=== PATIENT | male | born 1975 | race African-American/Black ===

== ENCOUNTER 2025-04-18 00:37 | Inpatient (IN) | payer MEDICAID ==
[2025-04-18] VITALS (39 sets, daily range): BP systolic 57–191; BP diastolic 35–179; PULSE 82–118; RESP 0–30; TEMP 36.1–37; O2SAT 100
[~2025-04-18] VITALS: Ht 165.1 cm; Wt 120.3 kg
[2025-04-18] MEDS: OLANZAPINE 10 MG/VIAL IM ONE (02:05)
[2025-04-18] MEDS ORDERED: ACETAMINOPHEN 650MG/20.3ML UDC GT PRN (11:45)
[2025-04-18] MEDS ORDERED: IPRATROPIUM/ALBUTEROL 0.5-3(2.5)MG/3ML NEB HHN PRN (11:45)
[2025-04-18] MEDS: NOREPINEPHRINE 8MG/250ML PMX 250 ML IV PRN (14:03)
[2025-04-18] MEDS: ALBUMIN HUMAN 25GM/100ML (25%) IV NR (14:04)
[2025-04-18] MEDS: SODIUM CHLORIDE 0.9% 250 ML IV ONE (14:15)
[2025-04-18] MEDS: SODIUM CHLORIDE 0.9% 500 ML IV ONE (14:15)
[2025-04-18 14:19] LABS: BG BASE EXCESS -7.4 mmol/L (-2.0-3.0); BG CARBOXYHEMOGLOBIN 0.1 % (0.5-1.5); BG DEOXYHEMOGLOBIN 0.6 % (0.0-5.0); BG FLOW(L/min) 5.00 L/min; BG FRACTION INSPIRED OXYGEN 40; BG HCO3 ACT 15.9 mmol/L (21.0-28.0); BG METHEMOGLOBIN 0.3 % (0.5-1.5); BG OXYGEN SATURATION 99.4 % (94.0-98.0); BG OXYHEMOGLOBIN 99.0 % (94.0-98.0); BG PCO2 25.2 mmHg (35.0-48.0); BG PH 7.417 (7.350-7.450); BG PO2 177.0 mmHg (83.0-108.0); BG SAMPLE SITE LEFT RADIAL; BG TOTAL HEMOGLOBIN 9.4 g/dL (13.5-17.5); BG VENT MODE NASAL CANNULA
[2025-04-18] MEDS: MIDODRINE HCL 5MG TABLET PO SCH (14:22)
[2025-04-18] MEDS: DEXTROSE 50% WATER 50ML SYRINGE IV NR (14:53)
[2025-04-18] MEDS: INSULIN REGULAR (HUMULIN R) 1000UNITS/10ML VIAL IV NR (14:57)
[2025-04-18] MEDS ORDERED: DEXTROSE 50% WATER 50ML SYRINGE IV PRN (17:45)
[2025-04-18 18:10] LABS: TROPONIN I HIGH SENSITIVITY 47 ng/L (3.0-53)
[2025-04-18 18:21] LABS: PHOSPHORUS 9.7 mg/dL (2.5-4.9)
[2025-04-18 18:45] LABS: HEPATITIS A AB IGM NEGATIVE (Negative)
[2025-04-18] MEDS: ALTEPLASE 2MG/VIAL ITC SCH (18:45)
[2025-04-18 18:46] LABS: HEPATITIS B CORE AB IGM NEGATIVE (Negative)
[2025-04-18 18:47] LABS: HEPATITIS C AB NON REACTIVE (Neg) (Negative)
[2025-04-18] MEDS: MAGNESIUM 2 G PREMIX 50 ML IV NR (19:13)
[2025-04-18] MEDS: INSULIN LISPRO 100 UNITS/ML SUBCUT SCH (21:00)
[2025-04-18] MEDS: BLOOD SUGAR DIAGNOSTIC STRIP TEST SCH (21:00)
[2025-04-18] MEDS: VANCOMYCIN 2GM PMX (XELLIA) 400 ML IV SCH (21:09)
[2025-04-18] MEDS ORDERED: MORPHINE SULFATE 2 MG/ML INJ (NOT FOR IM USE) IV PRN (21:30)
[2025-04-18] MEDS ORDERED: HYDRALAZINE 20MG/ML VIAL IV PRN (21:45)
[2025-04-18] MEDS ORDERED: NALOXONE HCL 0.4MG/ML VIAL IV PRN (21:45)
[2025-04-18 22:09] LABS: PLATELET 153 x1000/uL (130-400); RED BLOOD CELL COUNT 3.36 mill/uL (4.7-6.1); RED CELL DISTRIBUTION WIDTH 19.9 % (11.6-14.6)
[2025-04-18] MEDS: PIPERACILLIN/TAZO 3.375G/50ML 50 ML IV SCH (22:21)
[2025-04-18 23:32] LABS: UREA NITROGEN BLOOD 85.0 mg/dL (9-23)
[2025-04-18 23:35] LABS: CREATININE 13.7 mg/dL (0.6-1.3)
[2025-04-19] VITALS (107 sets, daily range): BP systolic 53–152; BP diastolic 36–132; PULSE 64–106; RESP 0–26; TEMP 36.114–36.9; O2SAT 95–100
[2025-04-19] MEDS: NOREPINEPHRINE 32 MG in DEXT 5% WATER 218 ML IV PRN (04:48)
[2025-04-19] MEDS: PANTOPRAZOLE SODIUM 40 MG/VIAL IV SCH (08:35)
[2025-04-19] MEDS: PIPERACILLIN/TAZO 3.375G/50ML 50 ML IV SCH (08:36)
[2025-04-19] MEDS: ALTEPLASE 2MG/VIAL ITC NR ×2 (14:31)
[2025-04-19] MEDS: MENTHOL/LANOLIN/CALAMINE/ZN OX OINT 71GM TOP SCH (14:57)
[2025-04-19] MEDS: NYSTATIN POWDER 15GM TOP SCH (14:58)
[2025-04-19 16:13] LABS: HEMATOCRIT. 23.1 % (42.0-52.0); HEMOGLOBIN. 7.1 g/dL (14.0-18.0); MEAN PLATELET VOLUME 8.4 fl (7.4-10.4); PLATELET 86 x1000/uL (130-400); RED BLOOD CELL COUNT 2.72 mill/uL (4.7-6.1); RED CELL DISTRIBUTION WIDTH 19.9 % (11.6-14.6)
[2025-04-19 16:22] LABS: UREA NITROGEN BLOOD 69.0 mg/dL (9-23)
[2025-04-19 16:26] LABS: T4 FREE 0.61 ng/dL (0.89-1.76)
[2025-04-19 16:28] LABS: CREATININE 10.7 mg/dL (0.6-1.3)
[2025-04-19 16:55] LABS: LYMPHOCYTES % MANUAL 9.0 % (20.0-50.0); MONOCYTES % MANUAL 16.0 % (2.0-8.0); NEUTROPHILS % MANUAL 75.0 % (45.0-75.0); NUCLEATED RED BLOOD CELLS 2 /100 WBC; PLATELET ESTIMATE DECREASED
[2025-04-19] MEDS: EPOETIN ALFA-EPBX 4,000 UNITS/ML VIAL SUBCUT SCH (21:13)
[2025-04-20] VITALS (98 sets, daily range): BP systolic 62–143; BP diastolic 35–107; PULSE 69–101; RESP 11–33; TEMP 36.6–36.9; O2SAT 99–100
[2025-04-20 10:42] LABS: MEAN PLATELET VOLUME 8.5 fl (7.4-10.4); PLATELET 75 x1000/uL (130-400); RED BLOOD CELL COUNT 2.65 mill/uL (4.7-6.1); RED CELL DISTRIBUTION WIDTH 20.6 % (11.6-14.6)
[2025-04-20 10:57] LABS: HEMATOCRIT. 22.9 % (42.0-52.0); HEMOGLOBIN. 6.9 g/dL (14.0-18.0)
[2025-04-20 11:01] LABS: UREA NITROGEN BLOOD 75 mg/dL (9-23)
[2025-04-20 11:03] LABS: ASPARTATE AMINOTRANSFERASE 9 IU/L (<34); BILIRUBIN TOTAL 0.2 mg/dL (0.1-1.0); PROTEIN TOTAL 4.7 g/dL (6.0-8.3)
[2025-04-20 11:54] LABS: CREATININE 10.8 mg/dL (0.6-1.3)
[2025-04-20 11:55] LABS: PHOSPHORUS 8.5 mg/dL (2.5-4.9)
[2025-04-20 11:59] LABS: BAND% 8.0 % (1.0-6.0); EOSINOPHILS % MANUAL 1.0 % (0.0-5.0); LYMPHOCYTES % MANUAL 5.0 % (20.0-50.0); MONOCYTES % MANUAL 12.0 % (2.0-8.0); NEUTROPHILS % MANUAL 74.0 % (45.0-75.0)
[2025-04-20 12:00] LABS: PLATELET ESTIMATE DECREASED
[2025-04-20] MEDS: SEVELAMER CARBONATE 800 MG TABLET PO SCH (16:50)
[2025-04-21] VITALS (84 sets, daily range): BP systolic 55–160; BP diastolic 30–99; PULSE 60–146; RESP 13–34; TEMP 36.1–37.2; O2SAT 97–100
[2025-04-21] MEDS: MIDODRINE HCL 5MG TABLET PO SCH (03:30)
[2025-04-21] MEDS: ALBUMIN HUMAN 25GM/100ML (25%) IV NR (04:15)
[2025-04-21] MEDS: VASOPRESSIN 20 UNIT in SODIUM CHLORIDE 0.9% 99 ML IV PRN (04:42)
[2025-04-21] MEDS ORDERED: MIDODRINE HCL 5MG TABLET PO SCH (05:00)
[2025-04-21] MEDS: EPINEPHRINE 10 MG in SODIUM CHLORIDE 0.9% 240 ML IV PRN (06:07)
[2025-04-21] MEDS: SODIUM BICARBONATE 650MG TABLET PO SCH (08:41)
[2025-04-21] MEDS: ONDANSETRON HCL 4MG/2ML INJ IV PRN (09:47)
[2025-04-21 10:35] LABS: HEMATOCRIT. 24.0 % (42.0-52.0); HEMOGLOBIN. 7.1 g/dL (14.0-18.0); MEAN PLATELET VOLUME 9.2 fl (7.4-10.4); PLATELET 91 x1000/uL (130-400); RED BLOOD CELL COUNT 2.73 mill/uL (4.7-6.1); RED CELL DISTRIBUTION WIDTH 21.3 % (11.6-14.6)
[2025-04-21 10:55] LABS: UREA NITROGEN BLOOD 70.0 mg/dL (9-23)
[2025-04-21 10:59] LABS: CREATININE 10.2 mg/dL (0.6-1.3)
[2025-04-21 14:39] LABS: BAND% 21.0 % (1.0-6.0); EOSINOPHILS % MANUAL 1.0 % (0.0-5.0); LYMPHOCYTES % MANUAL 5.0 % (20.0-50.0); MONOCYTES % MANUAL 7.0 % (2.0-8.0); NEUTROPHILS % MANUAL 66.0 % (45.0-75.0); NUCLEATED RED BLOOD CELLS 1 /100 WBC; PLATELET ESTIMATE DECREASED
[2025-04-22] VITALS (94 sets, daily range): BP systolic 61–154; BP diastolic 34–99; PULSE 95–109; RESP 25–30; TEMP 36.6–36.7; O2SAT 98
[2025-04-22 10:07] LABS: MEAN PLATELET VOLUME 9.3 fl (7.4-10.4); PLATELET 73 x1000/uL (130-400); RED BLOOD CELL COUNT 2.42 mill/uL (4.7-6.1); RED CELL DISTRIBUTION WIDTH 21.6 % (11.6-14.6)
[2025-04-22 10:14] LABS: UREA NITROGEN BLOOD 46.0 mg/dL (9-23)
[2025-04-22 10:15] LABS: HEMOGLOBIN. 6.3 g/dL (14.0-18.0)
[2025-04-22 10:16] LABS: HEMATOCRIT. 20.9 % (42.0-52.0)
[2025-04-22] MEDS: SODIUM CHLORIDE 0.9% 1,000 ML IV SCH (10:25)
[2025-04-22 10:42] LABS: CREATININE 7.9 mg/dL (0.6-1.3)
[2025-04-22 21:39] LABS: LYMPHOCYTES % MANUAL 13.0 % (20.0-50.0); MONOCYTES % MANUAL 29.0 % (2.0-8.0); NEUTROPHILS % MANUAL 58.0 % (45.0-75.0); PLATELET ESTIMATE DECREASED
[2025-04-23] VITALS (41 sets, daily range): BP systolic 66–153; BP diastolic 17–128; PULSE 84–96; RESP 14–20; TEMP 36.61404–37; O2SAT 99
[2025-04-23 08:32] LABS: UREA NITROGEN BLOOD 53.0 mg/dL (9-23)
[2025-04-23 09:19] LABS: CREATININE 9.1 mg/dL (0.6-1.3)
[2025-04-23] MEDS: ALTEPLASE 2MG/VIAL ITC NR (15:22)
[2025-04-23 19:32] LABS: HEMATOCRIT. 22.2 % (42.0-52.0); MEAN PLATELET VOLUME 9.3 fl (7.4-10.4); PLATELET 89 x1000/uL (130-400); RED BLOOD CELL COUNT 2.55 mill/uL (4.7-6.1); RED CELL DISTRIBUTION WIDTH 21.9 % (11.6-14.6)
[2025-04-23 19:37] LABS: HEMOGLOBIN. 6.7 g/dL (14.0-18.0)
[2025-04-23 19:55] LABS: EOSINOPHILS % MANUAL 1.0 % (0.0-5.0); LYMPHOCYTES % MANUAL 10.0 % (20.0-50.0); MONOCYTES % MANUAL 16.0 % (2.0-8.0); NEUTROPHILS % MANUAL 73.0 % (45.0-75.0); PLATELET ESTIMATE DECREASED
[2025-04-24] VITALS (39 sets, daily range): BP systolic 49–143; BP diastolic 37–125; PULSE 78–104; RESP 14–26; TEMP 36.44736–37.1; O2SAT 97–100
[2025-04-24] MEDS ORDERED: GABAPENTIN 300MG CAPSULE PO SCH (09:00)
[2025-04-24] MEDS: GABAPENTIN 100MG CAPSULE PO SCH (10:40)
[2025-04-24] MEDS: HALOPERIDOL LACTATE 5MG/ML VIAL IM SCH (16:50)
[2025-04-24] MEDS: LORAZEPAM 2MG/ML UD SYRINGE IV SCH (16:52)
[2025-04-24] MEDS: DIPHENHYDRAMINE 50MG/ML VIAL IV SCH (16:52)
[2025-04-24] MEDS: TRAZODONE HCL 50MG TABLET PO SCH (21:39)
[2025-04-25] VITALS (111 sets, daily range): BP systolic 42–147; BP diastolic 16–127; PULSE 79–130; RESP 0–30; TEMP 36.4–36.6; O2SAT 97–100
[2025-04-25] MEDS ORDERED: LIDOCAINE HCL 1% 10 MG/ML 10ML VIAL ONE (08:06)
[2025-04-25] MEDS: SERTRALINE HCL 25MG TABLET PO SCH (08:42)
[2025-04-25] MEDS: CALCITRIOL 0.25MCG CAPSULE PO SCH (10:13)
[2025-04-25 22:46] LABS: PLATELET 139 x1000/uL (130-400); RED BLOOD CELL COUNT 3.11 mill/uL (4.7-6.1); RED CELL DISTRIBUTION WIDTH 21.5 % (11.6-14.6)
[2025-04-25 22:48] LABS: UREA NITROGEN BLOOD 31.0 mg/dL (9-23)
[2025-04-25 22:52] LABS: CREATININE 5.4 mg/dL (0.6-1.3)
[2025-04-26] VITALS (104 sets, daily range): BP systolic 45–185; BP diastolic 31–163; PULSE 74–132; RESP 0–22; TEMP 36.5–36.9; O2SAT 0–100
[2025-04-26 11:25] LABS: PLATELET 108 x1000/uL (130-400); RED BLOOD CELL COUNT 3.16 mill/uL (4.7-6.1); RED CELL DISTRIBUTION WIDTH 21.7 % (11.6-14.6)
[2025-04-26 11:39] LABS: UREA NITROGEN BLOOD 36.0 mg/dL (9-23)
[2025-04-26 12:51] LABS: CREATININE 7.5 mg/dL (0.6-1.3)
[2025-04-27] VITALS (83 sets, daily range): BP systolic 44–159; BP diastolic 15–139; PULSE 71–114; RESP 0–25; TEMP 36.7–36.9; O2SAT 73–100
[2025-04-28] VITALS (22 sets, daily range): BP systolic 47–114; BP diastolic 24–84; PULSE 83–103; RESP 10–25; TEMP 35.8–36.4; O2SAT 98–100
[2025-04-28] MEDS ORDERED: LIDOCAINE HCL 1% 10 MG/ML 10ML VIAL ONE (10:57)
[2025-04-28] MEDS ORDERED: HEPARIN SODIUM 1,000 UNIT/1ML VIAL IV NR (16:00)
[2025-04-28] MEDS ORDERED: HYDRALAZINE 5 MG in SODIUM CHLORIDE 0.9% 49.75 ML IV PRN (16:15)
[2025-04-28] MEDS: DIPHENHYDRAMINE 50MG CAPSULE PO PRN (23:35)
[2025-04-29] VITALS (13 sets, daily range): BP systolic 50–94; BP diastolic 33–49; PULSE 46–95; RESP 18–20; TEMP 36.2–36.9; O2SAT 97–100
[2025-04-30] VITALS (7 sets, daily range): BP systolic 80–109; BP diastolic 26–54; PULSE 84–98; RESP 18–20; TEMP 36.1–36.5; O2SAT 89–100
[2025-04-30] MEDS: PANTOPRAZOLE 40MG DR TABLET PO SCH (11:46)
[2025-05-01] VITALS: BP_SYST 80; BP_DIAS 29; BP_DIAS 45; PULSE 92; RESP 19; TEMP 36.4; O2SAT 98
[2025-05-01 04:00] VITALS: BP 80/29; PULSE 92; RESP 19; TEMP 36.4; O2SAT 98
[2025-05-01 08:00] VITALS: BP 103/55; PULSE 87; RESP 18; TEMP 35.7; O2SAT 98
[2025-05-01 12:00] VITALS: BP 90/52; PULSE 95; RESP 18; TEMP 35.8; O2SAT 97
[2025-05-01 16:00] VITALS: BP 83/40; PULSE 95; RESP 18; TEMP 35.8; O2SAT 98
[2025-05-01 20:00] VITALS: BP 93/46; PULSE 87; RESP 19; TEMP 36.6; O2SAT 62
[2025-05-02] VITALS (13 sets, daily range): BP systolic 71–132; BP diastolic 38–85; PULSE 45–95; RESP 17–20; TEMP 36.1–36.8; O2SAT 92–99
[2025-05-02] MEDS ORDERED: GABA-529 PO (09:06)
[2025-05-02] MEDS ORDERED: SODI650T PO (09:06)
[2025-05-02] MEDS ORDERED: TRAZ-251 PO (09:06)
[2025-05-02] MEDS ORDERED: SEVE800T8 PO (09:06)
[2025-05-02] MEDS ORDERED: SERT25TA74 PO (09:06)
[2025-05-02] MEDS ORDERED: CALC0.253 PO (09:06)
[2025-05-03] VITALS: BP 84/38; PULSE 95; RESP 18; TEMP 36.6; O2SAT 98
[2025-05-03 08:00] VITALS: RESP 18
[2025-05-03 12:00] VITALS: RESP 18
[2025-05-03 13:16] VITALS: BP 99/58; RESP 19
[2025-05-04] MEDS: SERTRALINE HCL 50MG TABLET PO SCH (09:00)
[2025-05-04 13:00] VITALS: BP 113/70; PULSE 70
[2025-05-04 16:00] VITALS: BP 85/36; PULSE 98; RESP 18; TEMP 36.7; O2SAT 98
[2025-05-04 20:00] VITALS: BP 78/36; TEMP 36.7
[2025-05-04 22:00] VITALS: BP 72/36
[2025-05-04] MEDS: HYDROMORPHONE HCL/PF 1MG/ML INJ IV NR (23:06)
[2025-05-05] VITALS (17 sets, daily range): BP systolic 70–101; BP diastolic 19–48; PULSE 70–110; RESP 16–20; TEMP 35.8–37.2; O2SAT 91–99
[2025-05-05] MEDS: SODIUM CHLORIDE 0.9% 250 ML IV ONE (01:00)
[2025-05-05] MEDS: SODIUM CHLORIDE 0.9% 500 ML IV ONE (10:15)
[2025-05-05] MEDS ORDERED: SODIUM CHLORIDE 0.9% 250 ML IV ONE (10:15)
[2025-05-06 08:00] VITALS: BP 87/40; PULSE 97; RESP 15; TEMP 36.2; O2SAT 98
[2025-05-06 12:00] VITALS: BP 80/39; PULSE 63; RESP 15; TEMP 36.3; O2SAT 98
[2025-05-06 16:00] VITALS: BP 80/48; PULSE 60; RESP 15; TEMP 36.6; O2SAT 98
[2025-05-07] VITALS (10 sets, daily range): BP systolic 84–97; BP diastolic 37–71; PULSE 89–104; RESP 17–21; TEMP 35.8–36.33624; O2SAT 97–100
[2025-05-07] MEDS: ACETAMINOPHEN 325MG TABLET PO PRN (23:37)
[2025-05-08] VITALS (7 sets, daily range): BP systolic 85–102; BP diastolic 38–56; PULSE 52–104; RESP 16–20; TEMP 36.3–36.4; O2SAT 95–98
[2025-05-08] MEDS ORDERED: DIPHENHYDRAMINE 50MG/ML VIAL IM PRN (15:45)
[2025-05-08] MEDS ORDERED: HALOPERIDOL LACTATE 5MG/ML VIAL IM PRN (15:45)
[2025-05-08] MEDS ORDERED: LORAZEPAM 2MG/ML UD SYRINGE IM PRN (15:45)
[2025-05-09] VITALS (7 sets, daily range): BP systolic 90–117; BP diastolic 45–69; PULSE 66–100; RESP 18–20; TEMP 35.6–36.50292; O2SAT 98
[2025-05-09 21:47] LABS: UREA NITROGEN BLOOD 30 mg/dL (9-23)
[2025-05-09 21:48] LABS: PROTEIN TOTAL 3.7 g/dL (6.0-8.3)
[2025-05-09 21:49] LABS: ASPARTATE AMINOTRANSFERASE 42 IU/L (<34); BILIRUBIN DIRECT 0.3 mg/dL (<=3.0); PHOSPHORUS 5.7 mg/dL (2.5-4.9)
[2025-05-09 21:50] LABS: BILIRUBIN TOTAL 0.3 mg/dL (0.1-1.0)
[2025-05-09 21:59] LABS: CREATININE 4.4 mg/dL (0.6-1.3)
[2025-05-09] MEDS ORDERED: DEXTROSE 50% WATER 50ML SYRINGE IV ONE (22:12)
[2025-05-09 22:34] LABS: HEPATITIS B CORE AB IGM NEGATIVE (Negative)
[2025-05-09 22:35] LABS: HEPATITIS C AB NON REACTIVE (Neg) (Negative)
[2025-05-10] MEDS: DEXTROSE 50% WATER 50ML SYRINGE IV PRN (05:49)
[2025-05-10 08:00] VITALS: RESP 17
[2025-05-10 12:00] VITALS: RESP 17
[2025-05-10] MEDS: GLUCAGON,HUMAN RECOMBINANT 1MG/VIAL IM NR (14:47)
[2025-05-10] MEDS ORDERED: GLUCAGON,HUMAN RECOMBINANT 1MG/VIAL IM NR (15:45)
[2025-05-10 16:00] VITALS: RESP 16
[2025-05-10] MEDS: DEXT 5%/0.45% NACL 1000ML 1,000 ML IV SCH (16:30)
[2025-05-10] MEDS ORDERED: HYDRALAZINE 20MG/ML VIAL IV PRN (18:00)
[2025-05-10 20:00] VITALS: BP 92/83; PULSE 97; RESP 22; TEMP 36.9; O2SAT 94
[2025-05-11] VITALS (44 sets, daily range): BP systolic 42–121; BP diastolic 24–92; PULSE 69–148; RESP 10–34; TEMP 34.3–36.6; O2SAT 94–100
[2025-05-11] MEDS ORDERED: PIPERACILLIN/TAZO 3.375G/50ML 50 ML IV SCH (14:00)
[2025-05-11] MEDS ORDERED: NOREPINEPHRINE 8MG/250ML PMX 250 ML IV PRN (14:30)
[2025-05-11 15:21] LABS: BG BASE EXCESS -24.3 mmol/L (-2.0-3.0); BG CARBOXYHEMOGLOBIN 0.6 % (0.5-1.5); BG DEOXYHEMOGLOBIN 24.8 % (0.0-5.0); BG FRACTION INSPIRED OXYGEN 100; BG HCO3 ACT 8.6 mmol/L (21.0-28.0); BG METHEMOGLOBIN 0.0 % (0.5-1.5); BG OXYGEN SATURATION 75.1 % (94.0-98.0); BG OXYHEMOGLOBIN 74.6 % (94.0-98.0); BG PCO2 53.3 mmHg (35.0-48.0); BG PEEP (cmH2O) 5.0 cmH2O; BG PH 6.824 (7.350-7.450); BG PO2 67.1 mmHg (83.0-108.0); BG SAMPLE SITE LEFT RADIAL; BG TIDAL VOLUME(mL) 500.0 mL; BG TOTAL HEMOGLOBIN 8.3 g/dL (13.5-17.5); BG VENT MODE VENT - AC; BG VENT RATE 16.0 set
[2025-05-11] MEDS: NOREPINEPHRINE 8MG/250ML PMX 250 ML IV PRN (15:25)
[2025-05-11] MEDS: PROPOFOL 10MG/ML 100ML 100 ML IV PRN (15:25)
[2025-05-11] MEDS: SODIUM BICARBONATE 8.4% 50MEQ/50ML SYR IV NR ×2 (15:29→20:26)
[2025-05-11 16:41] LABS: HEMATOCRIT. 33.3 % (42.0-52.0); HEMOGLOBIN. 8.6 g/dL (14.0-18.0); MEAN PLATELET VOLUME 9.6 fl (7.4-10.4); RED BLOOD CELL COUNT 3.23 mill/uL (4.7-6.1); RED CELL DISTRIBUTION WIDTH 22.2 % (11.6-14.6)
[2025-05-11 16:48] LABS: UREA NITROGEN BLOOD 31 mg/dL (9-23)
[2025-05-11 16:50] LABS: PHOSPHORUS 7.1 mg/dL (2.5-4.9)
[2025-05-11 16:51] LABS: CREATININE 6.1 mg/dL (0.6-1.3)
[2025-05-11 16:53] LABS: PLATELET 35 x1000/uL (130-400)
[2025-05-11] MEDS: PHENYLEPHRINE 100 MG in DEXT 5% WATER 240 ML IV PRN (16:53)
[2025-05-11] MEDS: SODIUM BICARBONATE 150 MEQ in DEXTROSE 5% WATER 850 ML IV SCH (16:54)
[2025-05-11] MEDS: MEROPENEM 500MG/50ML 50 ML IV SCH (17:42)
[2025-05-11] MEDS: VANCOMYCIN 2GM PMX (XELLIA) 400 ML IV NR (17:43)
[2025-05-11 17:46] LABS: BAND% 11.0 % (1.0-6.0); LYMPHOCYTES % MANUAL 8.0 % (20.0-50.0); METAMYELOCYTES % 3.0 % (0-0); MONOCYTES % MANUAL 9.0 % (2.0-8.0); MYELOCYTES % 3.0 % (0-0); NEUTROPHILS % MANUAL 66.0 % (45.0-75.0)
[2025-05-11 17:47] LABS: PLATELET ESTIMATE MARKEDLY DECREASED
[2025-05-11] MEDS ORDERED: DEXTROSE 50% WATER 50ML SYRINGE IV PRN (18:15)
[2025-05-11] MEDS: INSULIN LISPRO 100 UNITS/ML SUBCUT SCH (18:30)
[2025-05-11] MEDS ORDERED: IPRATROPIUM/ALBUTEROL 0.5-3(2.5)MG/3ML NEB HHN PRN (18:30)
[2025-05-11 18:50] LABS: BG BASE EXCESS -21.0 mmol/L (-2.0-3.0); BG CARBOXYHEMOGLOBIN 0.5 % (0.5-1.5); BG DEOXYHEMOGLOBIN 5.7 % (0.0-5.0); BG FRACTION INSPIRED OXYGEN 100; BG HCO3 ACT 10.9 mmol/L (21.0-28.0); BG METHEMOGLOBIN 0.0 % (0.5-1.5); BG OXYGEN SATURATION 94.3 % (94.0-98.0); BG OXYHEMOGLOBIN 93.8 % (94.0-98.0); BG PCO2 57.3 mmHg (35.0-48.0); BG PEEP (cmH2O) 5.0 cmH2O; BG PH 6.899 (7.350-7.450); BG PO2 105.7 mmHg (83.0-108.0); BG SAMPLE SITE RIGHT RADIAL; BG TIDAL VOLUME(mL) 500.0 mL; BG TOTAL HEMOGLOBIN 8.6 g/dL (13.5-17.5); BG VENT MODE VENT - AC; BG VENT RATE 18.0 set
[2025-05-11] MEDS: IPRATROPIUM/ALBUTEROL 0.5-3(2.5)MG/3ML NEB HHN SCH (20:00)
[2025-05-11] MEDS: CALCIUM GLUCONATE 100MG/ML 10ML VIAL IV NR (20:27)
[2025-05-11] MEDS: BLOOD SUGAR DIAGNOSTIC STRIP TEST SCH (20:58)
[2025-05-11] MEDS: HYDROCORTISONE SOD SUCCINATE 100 MG/2 ML VIAL IV SCH (21:10)
[2025-05-12] VITALS (74 sets, daily range): BP systolic 50–233; BP diastolic 32–159; PULSE 59–129; RESP 15–33; TEMP 33.44712–36.22512; O2SAT 64–99
[2025-05-12] MEDS: VANCOMYCIN 125MG/2.5ML ORAL SYR PO SCH (00:14)
[2025-05-12] MEDS: VASOPRESSIN 20 UNIT in SODIUM CHLORIDE 0.9% 99 ML IV PRN (00:15)
[2025-05-12] MEDS: NOREPINEPHRINE 32 MG in DEXT 5% WATER 218 ML IV PRN (00:24)
[2025-05-12 00:34] LABS: BG BASE EXCESS -20.6 mmol/L (-2.0-3.0); BG CARBOXYHEMOGLOBIN 0.5 % (0.5-1.5); BG DEOXYHEMOGLOBIN 14.2 % (0.0-5.0); BG FRACTION INSPIRED OXYGEN 100; BG HCO3 ACT 11.0 mmol/L (21.0-28.0); BG METHEMOGLOBIN 0.3 % (0.5-1.5); BG OXYGEN SATURATION 85.7 % (94.0-98.0); BG OXYHEMOGLOBIN 85.0 % (94.0-98.0); BG PCO2 55.5 mmHg (35.0-48.0); BG PEEP (cmH2O) 5.0 cmH2O; BG PH 6.915 (7.350-7.450); BG PO2 74.1 mmHg (83.0-108.0); BG TIDAL VOLUME(mL) 500.0 mL; BG TOTAL HEMOGLOBIN 8.5 g/dL (13.5-17.5); BG VENT MODE VENT - AC; BG VENT RATE 26.0 set
[2025-05-12] MEDS: SODIUM BICARBONATE 8.4% 50MEQ/50ML SYR IV NR ×4 (01:01→07:47)
[2025-05-12] MEDS ORDERED: CALCIUM GLUCONATE 1GM PREMIX 50 ML IV NR (01:45)
[2025-05-12 02:32] LABS: HEMATOCRIT. 31.2 % (42.0-52.0); HEMOGLOBIN. 7.9 g/dL (14.0-18.0); MEAN PLATELET VOLUME 11.6 fl (7.4-10.4); RED BLOOD CELL COUNT 3.03 mill/uL (4.7-6.1); RED CELL DISTRIBUTION WIDTH 22.9 % (11.6-14.6)
[2025-05-12 02:33] LABS: UREA NITROGEN BLOOD 29 mg/dL (9-23)
[2025-05-12 02:35] LABS: PHOSPHORUS 7.9 mg/dL (2.5-4.9)
[2025-05-12 03:12] LABS: PLATELET 15 x1000/uL (130-400)
[2025-05-12 03:22] LABS: BG BASE EXCESS -22.3 mmol/L (-2.0-3.0); BG CARBOXYHEMOGLOBIN 0.9 % (0.5-1.5); BG DEOXYHEMOGLOBIN 7.6 % (0.0-5.0); BG FRACTION INSPIRED OXYGEN 100; BG HCO3 ACT 8.3 mmol/L (21.0-28.0); BG METHEMOGLOBIN 0.3 % (0.5-1.5); BG OXYGEN SATURATION 92.3 % (94.0-98.0); BG OXYHEMOGLOBIN 91.2 % (94.0-98.0); BG PCO2 39.4 mmHg (35.0-48.0); BG PEEP (cmH2O) 8.0 cmH2O; BG PH 6.944 (7.350-7.450); BG PO2 89.7 mmHg (83.0-108.0); BG TOTAL HEMOGLOBIN 7.7 g/dL (13.5-17.5)
[2025-05-12 03:31] LABS: CREATININE 5.7 mg/dL (0.6-1.3)
[2025-05-12] MEDS ORDERED: CALCIUM GLUCONATE 1GM PREMIX 50 ML IV ONE (03:45)
[2025-05-12] MEDS: EPINEPHRINE 10 MG in SODIUM CHLORIDE 0.9% 240 ML IV PRN (06:49)
[2025-05-12 07:13] LABS: PROTEIN TOTAL 3.0 g/dL (6.0-8.3); TRIGLYCERIDE 334 mg/dL (0-150); UREA NITROGEN BLOOD 30 mg/dL (9-23)
[2025-05-12 07:14] LABS: ASPARTATE AMINOTRANSFERASE 61 IU/L (<34)
[2025-05-12 07:15] LABS: BILIRUBIN DIRECT 0.2 mg/dL (<=3.0); BILIRUBIN TOTAL 0.2 mg/dL (0.1-1.0)
[2025-05-12 07:20] LABS: CREATININE 5.7 mg/dL (0.6-1.3)
[2025-05-12 07:22] LABS: PHOSPHORUS 9.8 mg/dL (2.5-4.9)
[2025-05-12] MEDS: DOPAMINE 400MG/250ML PREMIX 250 ML IV PRN (07:56)
[2025-05-12 09:42] LABS: HEMATOCRIT. 24.6 % (42.0-52.0); MEAN PLATELET VOLUME 11.0 fl (7.4-10.4); RED BLOOD CELL COUNT 2.34 mill/uL (4.7-6.1); RED CELL DISTRIBUTION WIDTH 22.8 % (11.6-14.6)
[2025-05-12 09:47] LABS: HEMOGLOBIN. 6.2 g/dL (14.0-18.0)
[2025-05-12 09:48] LABS: PLATELET 16 x1000/uL (130-400)
[2025-05-12 10:02] LABS: BG BASE EXCESS -20.6 mmol/L (-2.0-3.0); BG CARBOXYHEMOGLOBIN 1.8 % (0.5-1.5); BG DEOXYHEMOGLOBIN 11.9 % (0.0-5.0); BG FRACTION INSPIRED OXYGEN 100; BG HCO3 ACT 10.2 mmol/L (21.0-28.0); BG METHEMOGLOBIN 0.3 % (0.5-1.5); BG OXYGEN SATURATION 87.8 % (94.0-98.0); BG OXYHEMOGLOBIN 86.0 % (94.0-98.0); BG PCO2 51.6 mmHg (35.0-48.0); BG PEEP (cmH2O) 8.0 cmH2O; BG PH 6.912 (7.350-7.450); BG PO2 79.3 mmHg (83.0-108.0); BG SAMPLE SITE RIGHT RADIAL; BG TIDAL VOLUME(mL) 525.0 mL; BG TOTAL HEMOGLOBIN 5.7 g/dL (13.5-17.5); BG VENT MODE VENT - PRVC; BG VENT RATE 32.0 set
[2025-05-12] MEDS ORDERED: LIDOCAINE HCL 1% 10 MG/ML 10ML VIAL ONE (12:12)
[2025-05-12] MEDS: EPINEPHRINE 20 MG in SODIUM CHLORIDE 0.9% 480 ML IV PRN (13:07)
[2025-05-12 14:20] LABS: LYMPHOCYTES % MANUAL 7.0 % (20.0-50.0); MONOCYTES % MANUAL 2.0 % (2.0-8.0); MYELOCYTES % 1.0 % (0-0); NEUTROPHILS % MANUAL 52.0 % (45.0-75.0)
[2025-05-12 14:21] LABS: BAND% 24.0 % (1.0-6.0); METAMYELOCYTES % 14.0 % (0-0); NUCLEATED RED BLOOD CELLS 15 /100 WBC; PLATELET ESTIMATE MARKEDLY DECREASED
[2025-05-12 14:27] LABS: BAND% 20.0 % (1.0-6.0); BASOPHILS % MANUAL 1.0 % (0.0-2.0); LYMPHOCYTES % MANUAL 13.0 % (20.0-50.0); METAMYELOCYTES % 21.0 % (0-0); MYELOCYTES % 5.0 % (0-0); NEUTROPHILS % MANUAL 40.0 % (45.0-75.0); NUCLEATED RED BLOOD CELLS 30 /100 WBC; PLATELET ESTIMATE MARKEDLY DECREASED
== END 2025-05-12 14:47 | DRG 720 ==
LOC: ER 00:37 → 5WST 01:39 → EDBEDREQ 01:45 → EDBEDREQTM 01:45 → ENRESERV 02:15 → MICUSO 14:00 → 4WST 04-28 11:00 → 7WST 05-04 15:20 → 8EST 05-05 18:21 → 7WST 05-10 17:49 → CVICU 05-11 14:16
PROVIDERS: ADMIT Internal Medicine; ATTEND Internal Medicine
PROC: 5A1D70Z Performance of Urinary Filtration, Intermittent, Less than 6 Hours Per Day (ICD-10-PCS; 2025-04-18)
PROC: 5A1D70Z Performance of Urinary Filtration, Intermittent, Less than 6 Hours Per Day (ICD-10-PCS; 2025-04-19)
PROC: 5A1D70Z Performance of Urinary Filtration, Intermittent, Less than 6 Hours Per Day (ICD-10-PCS; 2025-04-21)
PROC: 5A1D70Z Performance of Urinary Filtration, Intermittent, Less than 6 Hours Per Day (ICD-10-PCS; 2025-04-23)
PROC: 5A1D70Z Performance of Urinary Filtration, Intermittent, Less than 6 Hours Per Day (ICD-10-PCS; 2025-04-24)
PROC: 5A1D70Z Performance of Urinary Filtration, Intermittent, Less than 6 Hours Per Day (ICD-10-PCS; 2025-04-25)
PROC: 02HV33Z Insertion of Infusion Device into Superior Vena Cava, Percutaneous Approach (ICD-10-PCS; 2025-04-28)
PROC: B548ZZA Ultrasonography of Superior Vena Cava, Guidance (ICD-10-PCS; 2025-04-28)
PROC: 5A1D70Z Performance of Urinary Filtration, Intermittent, Less than 6 Hours Per Day (ICD-10-PCS; 2025-04-29)
PROC: 5A1D70Z Performance of Urinary Filtration, Intermittent, Less than 6 Hours Per Day (ICD-10-PCS; 2025-04-30)
PROC: 5A1D70Z Performance of Urinary Filtration, Intermittent, Less than 6 Hours Per Day (ICD-10-PCS; 2025-05-02)
PROC: 5A1D70Z Performance of Urinary Filtration, Intermittent, Less than 6 Hours Per Day (ICD-10-PCS; 2025-05-05)
PROC: 5A1D70Z Performance of Urinary Filtration, Intermittent, Less than 6 Hours Per Day (ICD-10-PCS; 2025-05-07)
PROC: 5A1D70Z Performance of Urinary Filtration, Intermittent, Less than 6 Hours Per Day (ICD-10-PCS; 2025-05-09)
PROC: 0BH17EZ Insertion of Endotracheal Airway into Trachea, Via Natural or Artificial Opening (ICD-10-PCS; principal; 2025-05-11)
PROC: 5A1945Z Respiratory Ventilation, 24-96 Consecutive Hours (ICD-10-PCS; 2025-05-11)
PROC: 5A12012 Performance of Cardiac Output, Single, Manual (ICD-10-PCS; 2025-05-11)
PROC: 5A1D70Z Performance of Urinary Filtration, Intermittent, Less than 6 Hours Per Day (ICD-10-PCS; 2025-05-12)
PROC: 30233N1 Transfusion of Nonautologous Red Blood Cells into Peripheral Vein, Percutaneous Approach (ICD-10-PCS; 2025-05-12)
PROC: 05HY33Z Insertion of Infusion Device into Upper Vein, Percutaneous Approach (ICD-10-PCS; 2025-05-12)
PROC: B54MZZA Ultrasonography of Right Upper Extremity Veins, Guidance (ICD-10-PCS; 2025-05-12)
DX: A41.9 Sepsis, unspecified organism (principal); D65 Disseminated intravascular coagulation [defibrination syndrome]; J80 Acute respiratory distress syndrome; R65.21 Severe sepsis with septic shock; E43 Unspecified severe protein-calorie malnutrition; K65.1 Peritoneal abscess; G92.8 Other toxic encephalopathy; K63.2 Fistula of intestine; I12.0 Hypertensive chronic kidney disease with stage 5 chronic kidney disease or end stage renal disease; N18.6 End stage renal disease; Z99.2 Dependence on renal dialysis; J18.9 Pneumonia, unspecified organism; L89.153 Pressure ulcer of sacral region, stage 3; K57.32 Diverticulitis of large intestine without perforation or abscess without bleeding; N17.9 Acute kidney failure, unspecified; L03.311 Cellulitis of abdominal wall; K57.80 Diverticulitis of intestine, part unspecified, with perforation and abscess without bleeding; D63.1 Anemia in chronic kidney disease; E11.22 Type 2 diabetes mellitus with diabetic chronic kidney disease; E66.01 Morbid (severe) obesity due to excess calories; E05.90 Thyrotoxicosis, unspecified without thyrotoxic crisis or storm; F32.9 Major depressive disorder, single episode, unspecified; E87.20 Acidosis, unspecified; E83.39 Other disorders of phosphorus metabolism; E87.5 Hyperkalemia; F41.9 Anxiety disorder, unspecified; E87.70 Fluid overload, unspecified; R45.851 Suicidal ideations; J81.1 Chronic pulmonary edema; E11.649 Type 2 diabetes mellitus with hypoglycemia without coma; L98.8 Other specified disorders of the skin and subcutaneous tissue; E87.1 Hypo-osmolality and hyponatremia; L30.4 Erythema intertrigo; L85.3 Xerosis cutis; Z93.3 Colostomy status; Z93.2 Ileostomy status; Z91.199 Patient's noncompliance with other medical treatment and regimen due to unspecified reason; Z68.41 Body mass index [BMI] 40.0-44.9, adult; Z87.891 Personal history of nicotine dependence; Z90.49 Acquired absence of other specified parts of digestive tract; Z79.899 Other long term (current) drug therapy
CPT/HCPCS: 31500; 31720; 36415; 36556; 36573; 36600; 71045; 71100; 77001; 80048; 80053; 80076; 80202; 82140; 82330; 82375; 82533; 82550; 82805; 82962; 83605; 83735; 83970; 84100; 84145; 84439; 84443; 84478; 84484; 85014; 85018; 85025; 85027; 85044; 86705; 86706; 86709; 86850; 86900; 86920; 87070; 87077; 87186; 87340; 90935; 92950; 93005; 94003; 94070; 94640; 94664; 97161; 97166; 98960; 99285; A4606; A4615; C1725; C1752; J0612; J0885; J1171; J1200; J1265; J1610; J1630; J1644; J1720; J1815; J2003; J2060; J2185; J2371; J2405; J2470; J2543; J2704; J2997; J3373; J3475; J3490; J7030; J7040; J7050; J7060; J7070; P9016; P9047; Q0163